=== PATIENT | female | born 1975 | race Caucasian/White ===

== ENCOUNTER 2016-12-28 05:08 | Emergency (ER) | payer OTHER ==
[2016-12-28] MEDS ORDERED: ONDANSETRON ODT 4 MG TAB ONE (08:25)
[2016-12-28] MEDS ORDERED: DILAUDID 1 MG/ML AMP ONE (08:25)
== END 2016-12-28 08:59 | disposition home or self-care (01) ==
LOC: ER 05:08
DX: S14.3XXA Injury of brachial plexus, initial encounter (principal); M25.512 Pain in left shoulder
CPT/HCPCS: 72050; 73030; 96372; 99284; J1170